=== PATIENT | female | born 1975 | race Caucasian/White ===

== ENCOUNTER 2018-08-18 22:39 | Emergency (ER) | payer OTHER ==
[2018-08-18 23:03] VITALS: BP 134/87
[2018-08-18] MEDS ORDERED: LIDOCAINE 1% INJ-PF (10 MG/ML) 30 ML SDV INJ ONE (23:22)
[2018-08-18] MEDS ORDERED: DIPH/PERTUSS(ACELL)/TETANUS VAC/PF 0.5 ML SYR (>=10YO) IM ONE (23:29)
--- NOTE | 2018-08-19 00:28 | ER Document Report ---
ED Extremity Problem, Upper - General Chief Complaint: Laceration Stated Complaint: THUMB INJURY Time Seen by Provider: 08/18/18 23:17 Mode of Arrival: Ambulatory Information source: Patient Notes: Patient is a 43-year-old female comes emergency room complaining of a laceration to her left thumb. 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 Patient states that she bled tremendous amount initially and then apply pressure and and came to the emergency room. She does not know when her last tetanus shot was. She has no medical problems. TRAVEL OUTSIDE OF THE [place] IN LAST 30 DAYS: No - HPI Patient complains to provider of: Injury, Left, Hand Onset: Just prior to arrival Recent injury: Yes Where: Work Quality of pain: Sharp, Throbbing Severity of pain: Moderate, Constant Pain Level: 3 Context: Incised Associated symptoms: None Exacerbated by: Movement Relieved by: Rest, Positioning Similar symptoms previously: No Recently seen / treated by doctor: No - Related Data Allergies/Adverse Reactions: No Known Allergies Allergy (Unverified 08/18/18 22:48) Past Medical History - General Information source: Patient - Social History Smoking Status: Current Every Day Smoker Cigarette use (# per day): Yes - Half-pack a day Chew tobacco use (# tins/day): No Smoking Education Provided: Yes Frequency of alcohol use: Rare Drug Abuse: None Occupation: manager helpdesk Lives with: Family Family History: Reviewed & Not Pertinent Patient has suicidal ideation: Yes Patient has homicidal ideation: Yes Renal/ Medical History: Denies: Hx Peritoneal Dialysis Review of Systems - Review of Systems Constitutional: No symptoms reported EENT: No symptoms reported Cardiovascular: No symptoms reported Respiratory: No symptoms reported Gastrointestinal: No symptoms reported Genitourinary: No symptoms reported Female Genitourinary: No symptoms reported Musculoskeletal: No symptoms reported Skin: See HPI, Other - Laceration Hematologic/Lymphatic: No symptoms reported Neurological/Psychological: No symptoms reported -: Yes All other systems reviewed and negative Physical Exam - Vital signs Vitals: Temp Pulse Resp BP Pulse Ox 98.4 F 83 16 134/87 H 99 08/18/18 23:02 08/18/18 23:02 08/18/18 23:02 08/18/18 23:02 08/18/18 23:02 Interpretation: Hypertensive - Notes Notes: PHYSICAL EXAMINATION: GENERAL: Well-appearing, well-nourished and in no acute distress. HEAD: Atraumatic, normocephalic. LUNGS: Breath sounds clear to auscultation bilaterally and equal. No wheezes rales or rhonchi. HEART: Regular rate and rhythm without murmurs Female : deferred Musculoskeletal: Patient's area of concern is her left thumb at the webspace right at the base of the thumb. There is approximately 1.8 cm jagged laceration that is into the webspace with moderate amount of bleeding. Patient has full range of motion with her thumb with no deficits. She has good strength against resistance in all directions. After application of a tourniquet was able to view the area at the webspace with in a bloodless field and there was no tendon visualization. Patient has good cap refill in the nailbed of that left thumb. And again full range of motion with no deficits. NEUROLOGICAL: Normal speech, normal gait. Normal sensory, motor exams PSYCH: Normal mood, normal affect. SKIN: See musculoskeletal above Course - Re-evaluation Re-evalutation: 08/19/18 00:28 Patient course of stay in the emergency room was uneventful. After suturing of the patient's thumb we discussed the application of a splint which patient really does not want to have on. She is left-handed. Patient does not do anything of super stress nature and has been warned not to for the next several days. I have tested it against good resistance in both ways pressure being applied and suturing is solid and is holding taught. Therefore I do not believe patient seriously needs a splint at this time. - Vital Signs Vital signs: Temp Pulse Resp BP Pulse Ox 98.4 F 83 16 134/87 H 99 08/18/18 23:02 08/18/18 23:02 08/18/18 23:02 08/18/18 23:02 08/18/18 23:02 Procedures - Laceration/Wound Repair Left Thumb Time completed: 00:30 Wound length (cm): 1.8 Wound's Depth, Shape: Irregular, Stellate Laceration pre-procedure: Sterile PPE donned, Betadine prep applied, Sterile drapes applied, Shur-Clens applied Anesthetic type: 1% Lidocaine Volume Anesthetic (mLs): 6 Wound explored: Clean, No foreign body removed Irrigated w/ Saline (mLs): 500 Wound Debrided: Minimal Wound Repaired With: Sutures Suture Size/Type: 4:0, Prolene Number of Sutures: 5 Post-procedure wound care: Sterile dressing applied Post-procedure NV exam normal: Yes Complications: No Discharge - Discharge Clinical Impression: Laceration of thumb Qualifiers: Encounter type: initial encounter Damage to nail status: without damage Foreign body presence: without foreign body Laterality: left Qualified Code(s): S61.012A - Laceration without foreign body of left thumb without damage to nail , initial encounter Condition: Stable Disposition: HOME, SELF-CARE Instructions: Antibiotic Ointment Protection ([facility]), Laceration Care ([facility]), Oral Narcotic Medication ([facility]), Prophylactic Antibiotic ([facility]), Soap Cleansing ( [facility]), Tetanus Immunization Given ([facility]) Additional Instructions: As we discussed need to go home keep the area clean and dry for 48 hours as best as possible. After the 48 hours is not as important to keep it dry all the time. But at the same time the only statin water for several minutes or hours at a time. Once it is dirty wash it with clean soap and water and let it air dry. Take all the antibiotics. He will need to have the sutures removed anywhere from 10-12 days. Return to ER sooner if it does not appear to be healing appropriately. As we discussed I can put in 100 sutures but if you are very rough with it you will ripped the sutures out so this is an area that is very flexible and movable be careful with your use of the thumb until the sutures are removed. Should you have any concerns he may return to ER for recheck. Change her dressing at least twice a day and you may apply antibiotic cream twice a day as well. Prescriptions: Cephalexin Monohydrate [Keflex 500 mg Capsule] 500 mg PO Q6H 7 Days #28 capsule Fluconazole [Diflucan] 150 mg PO ONCE PRN #1 tablet PRN Reason: Forms: Elevated Blood Pressure, Special Work Note
[2018-08-19] MEDS ORDERED: HYDROCODONE/ACETAMINOPHEN 5-325 MG (6 TAB/ER DISP) PO PRN (00:37)
== END 2018-08-19 00:51 | disposition home or self-care (01) ==
LOC: ER 22:39
PROC: 0HQGXZZ Repair Left Hand Skin, External Approach (ICD-10-PCS; principal; 2018-08-18)
DX: S61.012A Laceration without foreign body of left thumb without damage to nail, initial encounter (principal); W26.8XXA Contact with other sharp object(s), not elsewhere classified, initial encounter; Y92.511 Restaurant or cafe as the place of occurrence of the external cause; Y99.0 Civilian activity done for income or pay; F17.210 Nicotine dependence, cigarettes, uncomplicated
CPT/HCPCS: 99282; 90471; 90715; 12001; J3490